=== PATIENT | male | born 1965 | race Caucasian/White ===

== ENCOUNTER 2019-08-26 09:04 | Outpatient (CLI) | payer BC ==
--- NOTE | 2019-08-26 09:32 | RAD ---
4 views of the right knee: 08/26/2019 COMPARISON: None HISTORY: Knee pain, recent fall FINDINGS: No fracture or dislocation. No radiopaque foreign body or subcutaneous gas. No knee joint e ffusion. Mild posterior patellar osteophyte formation and mild patellofemoral joint space narrowing. IMPRESSION: No acute findings.
== END 2019-08-26 09:05 | disposition home or self-care (01) ==
LOC: SCSRAD 09:04
PROVIDERS: ATTEND Family Medicine
DX: E11.65 Type 2 diabetes mellitus with hyperglycemia (principal)

== ENCOUNTER 2021-06-19 12:47 | Outpatient (CLI) | payer OTHER | END 2021-06-19 12:48 | disposition home or self-care (01) | LOC: DTY/OP 12:47 | PROVIDERS: ATTEND Family Medicine | DX: E11.65 Type 2 diabetes mellitus with hyperglycemia (principal) | CPT/HCPCS: 97802 ==